=== PATIENT | male | born 1955 | race Caucasian/White ===

== ENCOUNTER 2016-07-22 16:48 | Emergency (ER) | payer OTHER ==
[~2016-07-22] VITALS: Ht 172.7 cm; Wt 75.6 kg
[2016-07-22] MEDS ORDERED: GEMFIBROZIL600 MG PO (17:01)
[2016-07-22] MEDS ORDERED: METOCLOPRAMIDE10 MG PO (17:01)
[2016-07-22] MEDS ORDERED: OMEPRAZOLE40 M1 PO (17:01)
[2016-07-22] MEDS ORDERED: MEGA RED PO (17:02)
[2016-07-22 19:11] VITALS: BP 150/87
== END 2016-07-22 19:19 | disposition home or self-care (01) ==
LOC: EME 16:48
DX: S61.253A Open bite of left middle finger without damage to nail, initial encounter (principal); W55.81XA Bitten by other mammals, initial encounter; Z20.3 Contact with and (suspected) exposure to rabies; Z29.14 Encounter for prophylactic rabies immune globulin; Z23 Encounter for immunization; Y99.0 Civilian activity done for income or pay; Y92.009 Unspecified place in unspecified non-institutional (private) residence as the place of occurrence of the external cause
CPT/HCPCS: 99281; 99283